=== PATIENT | male | born 1985 | race Hispanic/Latino ===

== ENCOUNTER 2021-05-11 18:05 | Emergency (ER) | payer OTHER ==
[2021-05-11] MEDS ORDERED: LIDOCAINE 1% 20 ML MDV ONE (18:33)
--- NOTE | 2021-05-11 18:49 | RAD REPORT ---
EXAM DESCRIPTION: CT - CTHCSPWOC - 05/11/2021 6:36 pm CLINICAL HISTORY: Trauma, head and neck injury. headache, neck pain, trauma COMPARISON: No comparisons TECHNIQUE: Axial 5 mm thick images of the head were obtained. Axial 2 mm thick images of the cervical spine were obtained with sagittal and coronal reconstruction images generated and reviewed. All CT scans are performed using dose optimization technique as appropriate and may include automated exposure control or mA/KV adjustment according to patient size. FINDINGS: CT HEAD WITHOUT CONTRAST: No acute hemorrhage, hydrocephalus or extra-axial collection is identified.No areas of brain edema or midline shift. The paranasal sinuses and mastoids are clear.The calvarium is intact. CT CERVICAL SPINE WITHOUT CONTRAST: No fracture or subluxation.No prevertebral soft tissues swelling is identified. Soft tissue laceratio n noted in the region of the right ear. Mild radiopaque debris is present in the region of laceration . IMPRESSION: No acute intracranial or cervical spine findings.
[2021-05-11] MEDS ORDERED: NA CHLORIDE 0.9% 100 ML ONE (20:37)
[2021-05-11] MEDS ORDERED: CEFAZOLIN SODIUM 1 GM/VIAL ONE (20:37)
--- NOTE | 2021-05-11 23:50 | EDPHYS ---
Physician Documentation [facility] Name: Devin Feliciano Age: 35 yrs Sex: Male : 1985 Arrival Date: 05/11/2021 Time: 18:13 Bed 18 Private MD: ED Physician Gabino Sevilla HPI: 05/11 18:15 This 35 yrs old Male presents to ER via EMS with complaints of Laceration To [facility] Head. 18:15 The patient or guardian reports injury, a laceration. The complaints affect the right [facility] ear. Context of injury: The problem was sustained. Onset: The symptoms/episode began/occurred acutely. This is a 35-year-old male with history of hypertension the presents emerged department with a laceration to the right side of his scalp above his ear. Patient states this occurred when he struck his head [facility] of the [facility] cell when the door was being closed. The door closed onto his head. Patient states that he did momentarily lose consciousness when he hit his head. Denies vomiting. Patient states having some neck pain as well.. Historical: - Allergies: 18:54 No Known Allergies; lr4 - Home Meds: 18:54 Unable to obtain [Active]; lr4 - PMHx: 18:54 Hypertensive disorder; Anxiety; Panic attack; lr4 - PSHx: 18:54 None; lr4 - Immunization history:: Adult Immunizations not up to date, Client reports having NOT received the Covid vaccine. Last tetanus immunization: up to date < 5 years ago. - Social history:: Smoking status: Patient/guardian denies using tobacco, the patient reports quitting approximately 7 years ago. ROS: 18:15 Constitutional: Negative for fever, chills, and weight loss. jmm 18:15 Cardiovascular: Negative for chest pain, palpitations, and edema, Respiratory: Negative for shortness of breath, cough, wheezing, and pleuritic chest pain. 18:15 ENT: Positive for ear pain. 18:15 Neck: Positive for pain with movement. 18:15 Neuro: Positive for headache. 18:15 All other systems are negative. Exam: 18:15 Constitutional: This is a well developed, well nourished patient who is awake, alert, jmm and in no acute distress. 18:15 Neck: Trachea midline, Supple Chest/axilla: Normal chest wall appearance and motion. Cardiovascular: Regular rate and rhythm. No edema appreciated Respiratory: Normal respirations, no respiratory distress appreciated Abdomen/GI: Non distended, soft Back: Normal ROM Skin: General appearance color normal MS/ Extremity: Moves all extremities, no obvious deformities appreciated, no edema noted to the lower extremities Neuro: Awake and alert Psych: Behavior is normal, Mood is normal, Patient is cooperative and pleasant 18:15 Head/face: Noted is a laceration(s), that is deep, of the left ear. 18:15 ENT: Laceration noted to the superior portion above the ear which appears to cross into the external ear canal. Vital Signs: 18:20 BP 151 / 98; Pulse 72; Resp 16; Temp 97.9; Pulse Ox 99% on R/A; Weight 90.72 kg (R); lr4 Height 6 ft. 1 in. (185.42 cm); Pain 9/10; 20:57 BP 148 / 87; Pulse 71; Resp 16; Pulse Ox 98% on R/A; lr4 18:20 Body Mass Index 26.39 (90.72 kg, 185.42 cm) lr4 MDM: 18:15 Patient medically screened. [facility] 23:47 Data reviewed: vital signs, nurses notes. Counseling: I had a detailed discussion with [facility] the patient and/or guardian regarding: the historical points, exam findings, and any diagnostic results supporting the discharge/admit diagnosis, radiology results, the need to transfer to another facility. ED course: Due to dilation of the right external auditory meatus, ENT/[facility]/facial trauma was notified. They did accept the patient for transfer. Patient was given a gram of Ancef. And wound care was provided.. 05/11 20:48 Order name: COVID-19 SARS RT PCR (Document "Date of Onset" if Symptomatic); Complete mw2 Time: 22:57 05/11 18:18 Order name: CT Head C Spine; Complete Time: 19:02 [facility] 05/11 23:39 Order name: Wound Care: wet to dry over ear; Complete Time: 23:42 [facility] Administered Medications: 20:43 Drug: Ancef (cefazolin) 1 grams Route: IVPB; Site: right antecubital; lr4 23:51 Not Given (Physician Discretion): Lidocaine (1 %) 20 ml 20 ml Infiltration once; to lr4 bedside 05/12 00:39 Drug: Zofran (Ondansetron) 4 mg Route: IVP; Site: right antecubital; lg3 00:39 Follow up: Response: No adverse reaction lg3 00:39 Drug: morphine 4 mg Route: IVP; Site: right antecubital; lg3 00:39 Follow up: Response: No adverse reaction; RASS: Alert and Calm (0) lg3 Disposition: 18:29 Co-signature as Attending Physician, Gabino Sevilla MD I agree with the assessment and erick plan of care. Disposition Summary: 05/11/21 23:50 Transfer Ordered Transfer Location: [facility] Reason: Higher level of care jmm Condition: Stable jmm Problem: new jmm Symptoms: are unchanged jmm Accepting Physician: Dr. Lino(05/12/21 00:40) lg3 Diagnosis - Laceration of the Ear jmm Forms: - Medication Reconciliation Form jmm - SBAR form jmm Signatures: Dispatcher [employer] EDGabino Lopez MD MD cha Mickail, Joel, PA PA Lorin Liu, RN RN lg3 Mercedez Arceo RN RN lr4 Corrections: (The following items were deleted from the chart) 00:40 05/11 23:50 Dr. Holland rivas lg3
--- NOTE | 2021-05-11 23:50 | ER ---
Nurse's Notes [facility] Name: Devin Feliciano Age: 35 yrs Sex: Male : 1985 Arrival Date: 05/11/2021 Time: 18:13 Bed 18 Private MD: Diagnosis: Laceration of the Ear Presentation: 05/11 18:20 Chief complaint: Patient states: Pt bib ems from [facility], for 2.5 inch Lac to R side of lr4 head, above the ear, secondary to his head being closed in a cell door. Bleeding in controlled via bandaged. Pt rates pain to ear 9/10 on pain scale. 18:20 Method Of Arrival: EMS lr4 18:20 Coronavirus screen: Vaccine status: Patient reports being unvaccinated. Client denies lr4 travel out of the [place] in the last 14 days. At this time, the client does not indicate any symptoms associated with coronavirus-19. Ebola Screen: Patient negative for fever greater than or equal to 101.5 degrees Fahrenheit, and additional compatible Ebola Virus Disease symptoms. Initial Sepsis Screen: Does the patient meet any 2 criteria? No. Patient's initial sepsis screen is negative. Does the patient have a suspected source of infection? No. Patient's initial sepsis screen is negative. Risk Assessment: Do you want to hurt yourself or someone else? Patient reports no desire to harm self or others. Onset of symptoms was May 11, 2021 at 17:45. 18:20 Acuity: WIL 3 lr4 Triage Assessment: 18:54 General: Appears in no apparent distress. comfortable. General: Appears Behavior is lr4 calm, cooperative. Pain: Complains of pain in right ear Pain currently is 9 out of 10 on a pain scale. Quality of pain is described as aching, throbbing, Pain began 1 hour ago. Is continuous. Neuro: No deficits noted. Cardiovascular: No deficits noted. Respiratory: No deficits noted. Musculoskeletal: No deficits noted. Injury Description: Laceration Puncture sustained to above right ear is superficial. Historical: - Allergies: 18:54 No Known Allergies; lr4 - Home Meds: 18:54 Unable to obtain [Active]; lr4 - PMHx: 18:54 Hypertensive disorder; Anxiety; Panic attack; lr4 - PSHx: 18:54 None; lr4 - Immunization history:: Adult Immunizations not up to date, Client reports having NOT received the Covid vaccine. Last tetanus immunization: up to date < 5 years ago. - Social history:: Smoking status: Patient/guardian denies using tobacco, the patient reports quitting approximately 7 years ago. Screenin:05 Abuse screen: Denies threats or abuse. Nutritional screening: No deficits noted. lr4 Tuberculosis screening: No symptoms or risk factors identified. Fall Risk None identified. Assessment: 19:06 General: Appears in no apparent distress. comfortable, Behavior is calm, cooperative. lr4 Pain: Complains of pain in right ear Pain currently is 9 out of 10 on a pain scale. Neuro: No deficits noted. Cardiovascular: No deficits noted. Respiratory: No deficits noted. Injury Description: Laceration sustained to above right ear. Vital Signs: 18:20 BP 151 / 98; Pulse 72; Resp 16; Temp 97.9; Pulse Ox 99% on R/A; Weight 90.72 kg (R); lr4 Height 6 ft. 1 in. (185.42 cm); Pain 9/10; 20:57 BP 148 / 87; Pulse 71; Resp 16; Pulse Ox 98% on R/A; lr4 18:20 Body Mass Index 26.39 (90.72 kg, 185.42 cm) lr4 ED Course: 18:13 Patient arrived in ED. em1 18:15 Travis Malloy PA is PHCP. jmm 18:15 Gabino Sevilla MD is Attending Physician. jmm 18:28 Mercedez Arceo RN is Primary Nurse. lr4 18:36 CT Head C Spine In Process Unspecified. EDMS 18:54 Triage completed. lr4 18:54 Arm band placed on right wrist. lr4 19:05 Patient has correct armband on for positive identification. Bed in low position. Call lr4 light in reach. Side rails up X 1. Adult w/ patient. Sitter at bedside. 19:05 No provider procedures requiring assistance completed. Patient did not have IV access lr4 during this emergency room visit. 20:05 initiated a transfer with Hardy from [facility]. mw2 20:40 Inserted saline lock: 18 gauge in right antecubital area, using aseptic technique. lr4 21:15 awaiting the covid results. mw2 21:23 COVID-19 SARS RT PCR (Document "Date of Onset" if Symptomatic) Sent. lr4 22:46 connected Travis BUTLER with the Trauma doctor from [place]. mw2 23:27 administrative approval given by Hardy George/ patient has been accepted to [facility] mw2 728 bed 1/ Dr. Lino accepted the patient in transfer. 23:52 Report given to lorin douglas. lr4 Administered Medications: 20:43 Drug: Ancef (cefazolin) 1 grams Route: IVPB; Site: right antecubital; lr4 23:51 Not Given (Physician Discretion): Lidocaine (1 %) 20 ml 20 ml Infiltration once; to lr4 bedside 05/12 00:39 Drug: Zofran (Ondansetron) 4 mg Route: IVP; Site: right antecubital; lg3 00:39 Follow up: Response: No adverse reaction lg3 00:39 Drug: morphine 4 mg Route: IVP; Site: right antecubital; lg3 00:39 Follow up: Response: No adverse reaction; RASS: Alert and Calm (0) lg3 Outcome: 05/11 19:06 Condition: stable lr4 23:50 ER care complete, transfer ordered by MD. leahy 05/12 00:40 Patient left the ED. lg3 Signatures: Dispatcher [employer] EDMS Travis Malloy PA PA jmm Martinez, Eric em1 Lorie Field mw2 Lorin Banegas, RN RN lg3 Mercedez Arceo RN RN lr4 Corrections: (The following items were deleted from the chart) 05/11 21:56 20:40 Inserted saline lock: 20 gauge in right antecubital area, using aseptic lr4 technique. lr4 23:51 18:28 Lidocaine (1 %) 20 ml 20 ml Infiltration 20 ml lr4 lr4
[2021-05-12] MEDS ORDERED: ONDANSETRON 4 MG/2 ML VIAL ONE (00:12)
[2021-05-12] MEDS ORDERED: MORPHINE 4 MG/ML SYR ONE (00:12)
[2021-05-12 01:23] VITALS: TEMP 97.9
[2021-05-12 01:24] VITALS: BP 148/87; O2SAT 98
== END 2021-05-12 00:40 | disposition short-term general hospital (02) ==
LOC: ER 18:05
DX: S01.311A Laceration without foreign body of right ear, initial encounter (principal); W22.8XXA Striking against or struck by other objects, initial encounter; Y92.149 Unspecified place in prison as the place of occurrence of the external cause; I10 Essential (primary) hypertension; Z20.822 Contact with and (suspected) exposure to COVID-19
CPT/HCPCS: 70450; 72125; 96375; 96374; 99285; U0003; J2405; J0690